=== PATIENT | female | born 1945 | race Caucasian/White ===

== ENCOUNTER 2018-07-10 09:15 | Inpatient (IN) | payer OTHER ==
[2018-07-10] MEDS: CEFAZOLIN 2 GM/50 ML (PMX) 50 ML IVPB (06:00)
[~2018-07-10 09:15] MED LIST: CEFAZOLIN 1 GM INJ
[2018-07-10] MEDS ORDERED: PROPOFOL 20 ML (09:42)
[2018-07-10] MEDS ORDERED: FENTAnyl 50 MCG/ML VIAL (09:43)
[2018-07-10] MEDS ORDERED: MIDAZOLAM 1 MG/ML 2 ML INJ (09:43)
[2018-07-10] MEDS ORDERED: ONDANSETRON 4 MG INJ (09:43)
[2018-07-10] MEDS ORDERED: ROPIVACAINE 0.2% 20 ML VIAL (09:43)
[2018-07-10] MEDS ORDERED: METOCLOPRAMIDE 10 MG INJ (09:43)
[2018-07-10] MEDS: GABAPENTIN 300 MG CAP PO ×2 (10:00→20:15)
[2018-07-10] MEDS: DEXAMETHASONE 1 MG TAB PO (10:00)
[2018-07-10] MEDS ORDERED: THROMBIN 5000 UNIT VIAL (10:25)
[2018-07-10] MEDS ORDERED: TOBRAMYCIN 1.2 GM POWDER (10:28)
[2018-07-10] MEDS ORDERED: ONDANSETRON 4 MG INJ IV ×2 (11:00→13:00)
[2018-07-10] MEDS ORDERED: MEPERIDINE 25 MG INJ IV (11:00)
[2018-07-10] MEDS ORDERED: hydrALAzine 20 MG INJ IV (11:00)
[2018-07-10] MEDS ORDERED: LABETALOL HCL 20MG INJ IV (11:00)
[2018-07-10] MEDS ORDERED: HYDROmorphONE 1 MG/5 ML IV SYRINGE IV ×3 (11:00)
[2018-07-10] MEDS ORDERED: DIPHENHYDRAMINE 50 MG INJ IV ×2 (11:00→13:00)
[2018-07-10] MEDS: CA CHLORIDE 10% 10 ML SYRINGE (12:13)
[2018-07-10] MEDS: POLYMYXIN/BACITRACIN 1L IRRIG IRR (12:14)
[2018-07-10] MEDS: THROMBIN 5000 UNIT VIAL TOP (12:15)
[2018-07-10] MEDS: BUPIVACAINE 0.5% (SDV) 30 ML, morphine SULFATE (PF) 8 MG, EPINEPHrine 0.3 MG, KETOROLAC... IRR (12:16)
[2018-07-10] MEDS: TRANEXAMIC ACID 1,000 MG in DEXTROSE 5% 100 ML IVPB (12:17)
[2018-07-10] MEDS ORDERED: morphine 2 MG INJ IV ×2 (13:00)
[2018-07-10] MEDS ORDERED: ACETAMINOPHEN 500 MG TAB PO (13:00)
[2018-07-10] MEDS ORDERED: ZOLPIDEM 5 MG TAB PO (13:00)
[2018-07-10] MEDS ORDERED: MAGNESIUM HYDROXIDE 30ML CUP PO (13:00)
[2018-07-10] MEDS ORDERED: KETOROLAC 15 MG INJ IV (13:00)
[2018-07-10] MEDS: CEFAZOLIN 1 GM/50 ML (PMX) 50 ML IVPB ×2 (13:25→20:13)
[2018-07-10] MEDS: TRANEXAMIC ACID 1,000 MG in DEXTROSE 5% 100 ML IV (14:01)
[2018-07-10] MEDS: DEXAMETHASONE 2 MG TAB PO ×2 (17:27→23:32)
[2018-07-10] MEDS: OXYCODONE/ACETAMINOPHEN (5/325) TAB PO (17:27)
[2018-07-10] MEDS: SENNA/DOCUSATE NA (8.6MG/50MG) TAB PO (20:15)
[2018-07-11] MEDS: DEXAMETHASONE 2 MG TAB PO ×2 (05:28→11:49)
[2018-07-11] MEDS: CEFAZOLIN 1 GM/50 ML (PMX) 50 ML IVPB (05:28)
[2018-07-11] MEDS: OXYCODONE/ACETAMINOPHEN (5/325) TAB PO ×2 (05:31→11:49)
[2018-07-11] MEDS: ASPIRIN 81 MG TAB PO (09:15)
[2018-07-11] MEDS: SENNA/DOCUSATE NA (8.6MG/50MG) TAB PO (09:15)
[2018-07-11] MEDS: GABAPENTIN 300 MG CAP PO (10:47)
[2018-07-11] MEDS: TRIAMTERENE/HCTZ (37.5-25) CAP PO (10:47)
== END 2018-07-11 13:15 | disposition home or self-care (01) | DRG 483 ==
LOC: REC 09:15 → MS1 14:18
PROC: 0RRJ00Z Replacement of Right Shoulder Joint with Reverse Ball and Socket Synthetic Substitute, Open Approach (ICD-10-PCS; principal; 2018-07-10 10:55)
PROC: 0PB90ZZ Excision of Right Clavicle, Open Approach (ICD-10-PCS; 2018-07-10 10:55)
DX: M19.211 Secondary osteoarthritis, right shoulder (principal); M19.111 Post-traumatic osteoarthritis, right shoulder; M75.101 Unspecified rotator cuff tear or rupture of right shoulder, not specified as traumatic; S46.211A Strain of muscle, fascia and tendon of other parts of biceps, right arm, initial encounter
CPT/HCPCS: 73030-RT; 86999; 88304; 88311; 97166